=== PATIENT | male | born 1945 | race Caucasian/White ===

== ENCOUNTER 2016-12-09 07:46 | Inpatient (IN) | payer OTHER ==
[2016-11-27 14:32] LABS: ASCORBIC ACID (UR NOT ORDER) NEG (NEG); BILIRUBIN, URINE NEGATIVE (NEG); KETONE, URINE NEGATIVE (NEG); LEUKOCYTE ESTERASE(NOT OR NEG (NEG); WBC (NOT ORDERED) (RFLEX) < 1 (0-5)
[2016-11-27 15:57] LABS: BASOPHILS 0.6 %; BASOPHILS ABSOLUTE 0.03 10/3/uL (0.0-0.16); EOSINOPHILS 2.8 %; EOSINOPHILS ABSOLUTE 0.15 10/3/uL (0.0-0.53); HEMATOCRIT 43.4 % (40.0-51.0); HEMOGLOBIN 14.1 g/dL (13.6-17.8); LYMPHOCYTES 38.3 %; LYMPHOCYTES ABSOLUTE 2.07 10/3/uL (0.67-4.30); MEAN CORPUS HGB CONC 32.5 g/dL (32.0-36.0); MEAN CORPUSCULAR HEMOGLOB 30.5 pg (26.0-34.0); MEAN CORPUSCULAR VOLUME 93.7 fL (80-100); MEAN PLATELET VOLUME 9.9 fL (9.2-13.0); MONOCYTES 9.8 %; MONOCYTES ABSOLUTE 0.53 10/3/uL (0.21-1.20); NEUTROPHILS 48.5 %; NEUTROPHILS ABSOLUTE 2.62 10/3/uL (2.02-8.40); PLATELET COUNT 156 10/3/uL (150-400); RBC DISTRIBUTION WIDTH 15.1 % (12.0-16.0); RED CELL COUNT 4.63 10/6/uL (4.7-6.1); WHITE BLOOD CELLS 5.4 10/3/uL (4.5-10.5)
[2016-11-27 16:10] LABS: INTERNATIONAL NORMAL RATI 1.1 UNITS (-); PROTIME (NOT ORD) 14.2 SEC (12.0-14.5)
[2016-11-27 16:13] LABS: % IRON SAT 28 % (20-50); A/G RATIO 0.9 (0.7-1.9); ALBUMIN 3.5 G/DL (3.5-5.0); ALKALINE PHOSPHATASE 55 U/L (45-117); BUN (BLOOD UREA NITROGEN) 19 MG/DL (6-23); CALCIUM, SERUM 8.4 MG/DL (8.5-10.4); CHLORIDE, SERUM 110 MMOL/L (96-112); CO2 (CARBON DIOXIDE) 26 MMOL/L (24-34); CREATININE 0.91 MG/DL (0.70-1.30); GFR AFRICAN AMERICAN 99 ML/MIN (>=60); GFR NON AFRICAN AMERICAN 85 ML/MIN (>=60); GLOBULIN 3.7 G/DL (2.5-4.1); GLUCOSE, SERUM 89 MG/DL (60-99); IRON BINDING CAPACITY 265 MCG/DL (250-450); IRON, SERUM 73 MCG/DL (35-150); SGOT(AST) 13 U/L (5-40); SGPT(ALT) 20 U/L (5-65); SODIUM, SERUM 142 MMOL/L (135-148); TOTAL BILIRUBIN 0.3 MG/DL (0-1.2); TOTAL PROTEIN 7.2 G/DL (6.0-8.5)
[2016-11-27 16:14] LABS: POTASSIUM, SERUM 4.6 MMOL/L (3.5-5.3)
[2016-11-27 16:16] LABS: MANUAL DIFF NO %
--- NOTE | ~2016-12-09 | DS ---
Discharge Summary [facility] [address] [place]. [address] NAME: SILVER VINSON : 47 STATUS : DIS IN PAT#: [id number] AGE: 71 ADM/REG DATE : 12/09/16 MR#: [id number] REPORT SERV DATE: 12/23/16 DICTATED BY: ABDULAZIZ PETTIT DATE: 12/22/16 REPORT STATUS : Draft TRANSCRIBED BY: SALLY DATE: 12/22/16 Data Collection from hospitalization DISCHARGE DIAGNOSES: 1. Coronary artery disease, status post coronary artery bypass grafting. 2. Hypertension. 3. Hyperlipidemia. 4. Tobacco use. 5. Chronic obstructive pulmonary disease. 6. History of prostate cancer. CONSULTATIONS: Sánchez Dugan MD PROCEDURES PERFORMED: Coronary artery bypass grafting x5 with left internal mammary artery to the left anterior descending artery, reverse saphenous vein graft placed to the first diagonal, reverse saphenous vein graft placed to the first obtuse marginal, reverse saphenous vein graft placed to the second obtuse marginal, reverse saphenous vein graft placed to the posterior descending artery; endoscopic vein harvest of the saphenous vein from the right and left leg; transesophageal echocardiography on 12/09/2016. MEDICATIONS: Cordarone 300 mg twice a day, vitamin C 1000 mg daily, aspirin 81 mg daily, vitamin D3 2000 units at bedtime, Plavix 75 mg daily, vitamin B12 1000 mcg at bedtime, Cozaar 25 mg daily, Lopressor 12.5 mg twice a day, multivitamins one tablet daily, Percocet 5/325 one tablet every four hours as needed, Zantac 150 mg at bedtime, Crestor 20 mg at bedtime, and fiber tablets one tablet daily. CONDITION AT DISCHARGE: Stable. DISPOSITION: The patient was discharged home on a low-cholesterol, low-sodium, 1800-calorie cardiac/diabetic diet with activities as instructed. He would follow up with Hilario Germain on 01/07/[address] Mitul Fish on 01/04/2017. He would follow up with Dr. Zoë Smith, III, two to three weeks following discharge. HOSPITAL COURSE: This is a 71-year-old man who has a long history of tobacco use. He has smoked more than three packs per day for 52 years. He recently had a syncopal episode and had been evaluated by his primary care physician. An ultrasound was obtained. There was no significant carotid artery disease seen. He has been referred to Dr. Fish for a cardiac evaluation and underwent a nuclear stress test that was abnormal. This was followed by cardiac catheterization, which demonstrated severe diffuse three-vessel coronary artery disease. His ventricular function was good with ejection fraction greater than 50%. It was felt that he would need to undergo coronary artery bypass grafting. He was admitted to the hospital at this time for further evaluation and treatment. Upon admission, he was taken to the operating room where he underwent the above-mentioned procedure. He tolerated this well, and there were no complications. On postop day #1, his lungs were clear. He had no edema. He has been seen by Dr. Sánchez Dugan. The patient wanted to have a bowel movement. Cardiovascular medications were going to be started once he was stable. He was encouraged to use pulmonary toilet. On 12/11/2016, his abdomen was Discharge Summary [address] [address] NAME: SILVER VINSON : 47 STATUS : DIS IN PAT#: [id number] AGE: 71 ADM/REG DATE : 12/09/16 MR#: [id number] REPORT SERV DATE: 12/23/16 DICTATED BY: ABDULAZIZ PETTIT DATE: 12/22/16 REPORT STATUS : Draft TRANSCRIBED BY: SALLY DATE: 12/22/16 soft and nontender. His incisions looked okay. He had no edema. O2 was being weaned. We encouraged him to mobilize. He did have some chest pain with inspiration. He was ambulating in his room. He does have some dyspnea on exertion. He seemed to be making good progress. O2 was being weaned. He was encouraged to increase his ambulation. The next day, he had no new complaints. He did have coarse rhonchi in his lungs. White count was 13.2. Discharge planning was performed. Blood pressure was controlled. On 12/13/2016, his lungs were clear. Discharge instructions were given. He had no dyspnea or chest pain. Due to his improved and stable condition, he was discharged home with the above-stated instructions. Information collected by: Radha Madera I submit the above information as my discharge summary. ALLISON/SALLY Abdulaziz Pettit M.D. / [id number] CC: Tucker Holm III, MD Vimal Ramjee, MD
--- NOTE | ~2016-12-09 | OP ---
Record Of Operation [facility] [address] [place]. [address] NAME: SILVER VINSON : 47 STATUS : ADM IN PAT#: [id number] AGE: 71 ADM/REG DATE : 12/09/16 MR#: [id number] REPORT SERV DATE: 12/09/16 DICTATED BY: ABDULAZIZ PETTIT DATE: 12/09/16 REPORT STATUS : Draft TRANSCRIBED BY: MODL DATE: 12/09/16 DATE OF PROCEDURE: 12/09/2016 PREOPERATIVE DIAGNOSES: 1. Coronary artery disease. 2. Recent syncopal episode. 3. Hypertension. 4. Hyperlipidemia. 5. Obesity. 6. Tobacco abuse. 7. COPD secondary to tobacco abuse. POSTOPERATIVE DIAGNOSES: 1. Coronary artery disease. 2. Recent syncopal episode. 3. Hypertension. 4. Hyperlipidemia. 5. Obesity. 6. Tobacco abuse. 7. COPD secondary to tobacco abuse. PROCEDURE PERFORMED: 1. Coronary artery bypass grafting x5, left internal mammary artery placed to left anterior descending, reverse saphenous vein graft placed to the first diagonal, reverse saphenous vein graft placed to the first obtuse marginal, reverse saphenous vein graft placed to the second obtuse marginal, reverse saphenous vein graft placed to the posterior descending artery. 2. Endoscopic vein harvest, saphenous vein from the right and left leg. 3. Transesophageal echocardiography. SURGEON: Abdulaziz Pettit M.D. ANIMAL CARE WORKER: Pipe Whiteside, Estiven Arroyo, and Anam West. ANESTHESIA: General with Dr. Esqueda. CARDIOLOGISTS: Mitul Fish M.D. INDICATIONS: This is a 71-year-old gentleman with long history of smoking, who has smoked more than three packs per day for 52 years. He recently had a syncopal episode and was evaluated by his primary care physician. An ultrasound was obtained. There was no significant carotid artery disease seen. He was referred to Dr. Fish for cardiac evaluation and underwent a nuclear stress test that was abnormal. This was followed by a cardiac catheterization, which demonstrated severe diffuse three-vessel coronary artery disease. His ventricular function was good with an ejection fraction of greater than 50%. We were asked to see the patient for possible coronary artery bypass grafting. Pulmonary Record Of Operation [facility] [address] [place]. [address] NAME: SILVER VINSON : 47 STATUS : ADM IN PAT#: [id number] AGE: 71 ADM/REG DATE : 12/09/16 MR#: [id number] REPORT SERV DATE: 12/09/16 DICTATED BY: ABDULAZIZ PETTIT DATE: 12/09/16 REPORT STATUS : Draft TRANSCRIBED BY: MODL DATE: 12/09/16 function studies were performed, and these demonstrated findings consistent with moderate COPD with a FEV1 1.95, which is 64% of predicted. The patient also had a CT scan of the chest that demonstrated multiple small nodules in the right lower lobe with recommended one- year followup. There was mild ectasia of the ascending aorta and descending thoracic aorta. We discussed possible coronary artery bypass grafting with the patient in an outpatient setting. After discussing the operations, its indication, and risks, they wished to proceed. Preoperative discussion of STS predicted risk of mortality was carried out and mortality was less than 5% and morbidity-mortality of less than 12% were shared with him and his family. FINDINGS AT OPERATION: 1. Cross-clamp 104 minutes, total pump time of 119 minutes. 2. The LAD was 1.75 mm moderately diseased vessel. A 3 mm HAMMER was anastomosed to it with good runoff. 3. The first diagonal was a less than 1.5 mm and heavily diseased. A 4 mm RSVG was anastomosed to it with poor or fair runoff. This was a small and heavily diseased target vessel. 4. The first obtuse marginal was 2 mm and heavily diseased distally. A 3 to 4 mm RSVG was anastomosed to it with good runoff. 5. The second obtuse marginal was 1.5 mm, moderately diseased. A 3 mm RSVG was anastomosed to it with good runoff. 6. The distal right coronary artery at the bifurcation was 1.5 mm and heavily diseased. A 3 mm RSVG was anastomosed to it with good runoff. 7. The vein quality was fair and poor from both legs. Below the level of the knees, both greater saphenous veins had old thrombus and evidence of recanalization of the distal saphenous veins and it had to be removed. On the right side in the thigh, the vein became very large and would not usable as a conduit. On the left side, the vein was better quality and was found to be usable for conduit. All grafts with the exception of the diagonal vessel had good Doppler signal at the end of the case. The diagonal graft had fair signal. 8. ITZ at the end of the operation demonstrated good ventricular function with mild central mitral insufficiency. 9. The both lungs were emphysematous. Again, the patient had abnormality on CT scan and recommended followup was one year. 10.Both the greater saphenous veins had evidence of old thrombus lining the sides of the vessels making them a thicker saphenous vein. PATHOLOGIC SPECIMENS: None. DESCRIPTION OF PROCEDURE: The patient was brought to the operating suite. General anesthesia was induced, the airway was secured with an endotracheal tube. Lines were secured by Anesthesia. You catheter was placed. The patient's chest, abdomen, groin, and legs prepped with Hibiclens and ChloraPrep and draped with Ioban and sterile sheets. ITZ probe was placed by Dr. Esqueda and examination was carried out in my attendance. There was mild central mitral insufficiency. The saphenous vein was harvested from both legs using endoscopic technique. Initially, a 2 Record Of Operation [address] [address] NAME: SILVER VINSON ABDULAZIZ : 47 STATUS : ADM IN PAT#: [id number] AGE: 71 ADM/REG DATE : 12/09/16 MR#: [id number] REPORT SERV DATE: 12/09/16 DICTATED BY: ABDULAZIZ PETTIT DATE: 12/09/16 REPORT STATUS : Draft TRANSCRIBED BY: SALLY DATE: 12/09/16 cm incision placed in the medial aspect of the right knee. Then, using VasoView trocars, the vessel was dissected from the surrounding subcutaneous tissue and fat. The side branches were identified, ligated, and divided with cautery. Once adequate length of vein had been dissected, a counter incision made up in the groin and in the lower leg where the vein was ligated, divided, and brought through the knee incision. Unfortunately, the length of vein from the right leg was poor. Below the level of the knee, the vein was totally occluded with the old thrombosis and no real lumen. Above the knee, the vein became very dilated and aneurysmal and poor quality also. There was one segment of vein in the very proximal right thigh. It was reasonable for bypass grafting. Therefore, we cut down on the left greater saphenous vein through 2 cm incision placed in the medial aspect left knee. Then, using the VasoView trocars, the vessel was dissected from the surrounding subcutaneous tissue and fat. The side branches were identified, ligated, and divided with cautery. Again, when adequate length of vein had been dissected, a counter incision made up in the groin and in the lower leg where again the vein was brought out of the left knee incision. The vein quality was somewhat better from this side with usable lumen for most of the distance; however, evidence of old thrombosis in the vein could be seen distally and this was discarded. Both leg wounds were made hemostatic and closed in layers with absorbable suture and skin closed in subcuticular fashion. Then, a midline sternal incision was made and the sternum opened with a saw. The left hemithorax was elevated, and the endothoracic fascia was incised. Side branch of the NATALIE were clipped and divided. Once the NATALEI was completely dissected, the patient was anticoagulated with heparin. The chest tube was placed in the left pleural cavity. The NATALIE was clipped and divided distally. There was good flow through the NATALIE and its pedicle was infiltrated with papaverine. Next, the Chaz retractor was placed in the pericardium over the innominate vein where diaphragm was T'd and tacked to the side of the chest wall. Cannulation pursestring sutures were placed, and cannulation was carried out in routine manner. A retrograde cardioplegia cannula was placed in the coronary sinus. When all was in readiness, the patient was placed on cardiopulmonary bypass. The distal targets were then marked out on the heart as described in the findings. Then, a heart support was placed. The aorta was crossclamped and an initial dose of cold blood cardioplegia solution was given in a combination of antegrade and retrograde fashion, then in a retrograde manner following proximal anastomoses. Following the first dose of cardioplegia, the heart was positioned for the first obtuse marginal graft. Arteriotomy was made. The vein graft trimmed and anastomosed it with 7-0 Prolene. The vein graft was measured back to the left side of the ascending aorta where it was divided. We then positioned the heart for the distal right coronary artery graft. Arteriotomy was made, and the distal RCA is a bifurcated into the posterior lateral and posterior descending vessels. The vein was brought to the field and anastomosed to this site with a running suture of 7-0 Prolene. This vein graft was then measured to the ascending aorta where it was divided. Next, the proximal ends of the two vein grafts were Record Of Operation [facility] [id number] [facility]. [address] NAME: SILVER VINSON : 47 STATUS : ADM IN PAT#: [id number] AGE: 71 ADM/REG DATE : 12/09/16 MR#: [id number] REPORT SERV DATE: 12/09/16 DICTATED BY: ABDULAZIZ PETTIT DATE: 12/09/16 REPORT STATUS : Draft TRANSCRIBED BY: MODL DATE: 12/09/16 anastomosed to 4.5 mm punch aortotomy with 6-0 Prolene. Another dose of cardioplegia was given, and the heart was positioned for the second obtuse marginal graft. Arteriotomy was made. The vein graft trimmed and anastomosed it with 7-0 Prolene. This vein graft was then measured back to the left side of the ascending aorta where it was divided. We then positioned the heart for the diagonal graft. Arteriotomy was made in this heavily diseased vessel. This vein graft was trimmed and anastomosed it with 7-0 Prolene. This vein graft was then measured back to the left side of the ascending aorta where it was divided. Next, proximal ends of the two vein grafts were anastomosed to 4.5 mm punch aortotomy with 6-0 Prolene. Another dose of cardioplegia was given, and the heart was positioned for the LAD graft. Warming was begun. Arteriotomy was made in the mid LAD. The NATALIE was brought out the left chest through a notch in the pericardium over the pulmonary artery. The NATALIE was opened and anastomosed to the LAD with running suture of 8-0 Prolene. The endothoracic fascia was tacked to epicardium. The patient was placed in Trendelenburg and final dose of warm blood cardioplegia was given in a retrograde fashion. Ventricular and atrial pacing wires were placed. Following the last dose cardioplegia and de-airing of the aorta, the aortic cross clamp was removed. The distal and proximal anastomoses were inspected and made hemostatic. Doppler demonstrated good flow through the grafts. The heart resumed a slow sinus rhythm and was paced atrially at rate of 80. Ventilations were begun. When the heart demonstrated good contractility, it was allowed to fill and eject. When de-airing was completed, the patient was taken out of Trendelenburg. The ascending aortic vent removed and these pursestring sutures were tied and reinforced. The patient was then weaned from cardiopulmonary bypass with minimal inotropic support. The venous cannula was removed, and these pursestring were sutures tied. ITZ examination demonstrated good ventricular function with a mild central mitral insufficiency jet. Protamine was administered by Anesthesia and following a period hemodynamic stability, the aortic cannula was removed, and these pursestring sutures were tied and reinforced. The patient continued do well, and chest was irrigated copiously with saline. Meticulous hemostasis was obtained. Hemasorb was placed along the cut edge of the sternum. Once hemostasis was assured, the pericardium was draped over the anterior surface of heart and tacked in position. Doppler demonstrated good flow through all the grafts except for the diagonal graft which only had fair flow. Chest tube was then placed, and the sternum was reapproximated with eight sternal wires. The clavipectoral fascia were closed with #1 Stratafix, and the subcutaneous tissue closed with 2-0 Stratafix. The skin was closed in subcuticular fashion. The patient tolerated the procedure well. There were no complications. Sponge and needle counts were correct. DISPOSITION: The patient left intubated, sedated, and transported to the intensive care unit in stable condition. Record Of Operation [address] [place]. [address] NAME: SILVER VINSON : 47 STATUS : ADM IN [facility]#: [id number] AGE: 71 ADM/REG DATE : 12/09/16 MR#: [id number] REPORT SERV DATE: 12/09/16 DICTATED BY: ABDULAZIZ PETTIT DATE: 12/09/16 REPORT STATUS : Draft TRANSCRIBED BY: SALLY DATE: 12/09/16 GILES/SALLY Abdulaziz Pettit M.D. / [id number] CC: Tucker Holm M.D.
[~2016-12-09 07:46] MED LIST: CRESTOR20 MG PO; CYANO1000T PO; FIBER TAB PO; FISH-EPA1000 MG PO; LOP25 PO; MULTIPLE VIT PO; NORV25 PO; VITAMIN D31000 UNIT PO; ZANTAC150 MG PO
[2016-12-09 17:23] LABS: BE (BASE EXCESS) -6.5 MEQ/L (0 +/- 2.5); HCO3 (ACTUAL BICARBONATE) 19.4 MEQ/L (23-27); INSTRUMENT SERIAL # 11843; PCO2 (CO2 TENSION) 40 MMHG (35-45); PO2 (O2 TENSION) 517 MMHG (79-93)
[2016-12-09 17:24] LABS: CARBOXYHEMOGLOBIN 0.2 % (0-3); HEMOBLOGIN CONTENT 14.1 G/DL (14-18); METHEMOGLOBIN 0.6 % (0-3); MODE SIMV; O2 CONTENT 20.9 VOL% (18-24); OPERATOR ID 13624; SAMPLE Arterial; TIDAL VOLUME 700 ML
[2016-12-09 17:38] LABS: HEMATOCRIT 40.6 % (40.0-51.0); HEMOGLOBIN 13.6 g/dL (13.6-17.8); MEAN CORPUS HGB CONC 33.5 g/dL (32.0-36.0); MEAN CORPUSCULAR HEMOGLOB 30.8 pg (26.0-34.0); MEAN CORPUSCULAR VOLUME 91.9 fL (80-100); MEAN PLATELET VOLUME 9.7 fL (9.2-13.0); PLATELET COUNT 116 10/3/uL (150-400); RBC DISTRIBUTION WIDTH 14.5 % (12.0-16.0); RED CELL COUNT 4.42 10/6/uL (4.7-6.1)
[2016-12-09 17:43] LABS: MANUAL DIFF YES %
[2016-12-09 17:46] LABS: INTERNATIONAL NORMAL RATI 1.4 UNITS (-); PARTIAL THROMBO TIME 30.5 SEC (22.5-37.2)
[2016-12-09 17:47] LABS: PROTIME (NOT ORD) 16.7 SEC (12.0-14.5)
[2016-12-09 18:00] LABS: BAND NEUTROPHILS 17 %; EOSINOPHILS 1 %; EOSINOPHILS ABSOLUTE (CALC) 0.14 10/3/uL (0.0-0.53); LYMPHOCYTES 7 %; LYMPHOCYTES ABSOLUTE (CALC) 0.98 10/3/uL (0.67-4.30); MONOCYTES 1 %; MONOCYTES ABSOLUTE (CALC) 0.14 10/3/uL (0.21-1.20); NEUTROPHILS ABSOLUTE (CALC) 12.74 10/3/uL (2.02-8.40); PLATELET ESTIMATE SLT DEC (ADEQUATE); RBC MORPHOLOGY NORM (NORMAL); SEGMENTED NEUTROPHIL (0) 74 %; TOTAL NUCLEATED CELLS 100
[2016-12-09 18:07] LABS: ALBUMIN 2.8 G/DL (3.5-5.0); BUN (BLOOD UREA NITROGEN) 20 MG/DL (6-23); CALCIUM, SERUM 8.6 MG/DL (8.5-10.4); CHLORIDE, SERUM 113 MMOL/L (96-112); CO2 (CARBON DIOXIDE) 23 MMOL/L (24-34); CREATININE 1.14 MG/DL (0.70-1.30); GFR AFRICAN AMERICAN 75 ML/MIN (>=60); GFR NON AFRICAN AMERICAN 65 ML/MIN (>=60); GLUCOSE, SERUM 101 MG/DL (60-99); POTASSIUM, SERUM 3.9 MMOL/L (3.5-5.3); SODIUM, SERUM 144 MMOL/L (135-148)
[2016-12-09 22:29] LABS: BE (BASE EXCESS) -5.9 MEQ/L (0 +/- 2.5); CARBOXYHEMOGLOBIN 0.3 % (0-3); DEVICE NC; HCO3 (ACTUAL BICARBONATE) 19.4 MEQ/L (23-27); HEMOBLOGIN CONTENT 13.7 G/DL (14-18); INSTRUMENT SERIAL # 11843; METHEMOGLOBIN 0.4 % (0-3); O2 CONTENT 18.2 VOL% (18-24); OPERATOR ID 13744; PCO2 (CO2 TENSION) 38 MMHG (35-45); PO2 (O2 TENSION) 82 MMHG (79-93); SAMPLE Arterial; pH 7.33 (7.37-7.43)
[2016-12-09 22:49] LABS: HEMATOCRIT 39.6 % (40.0-51.0); HEMOGLOBIN 13.3 g/dL (13.6-17.8); MANUAL DIFF YES %; MEAN CORPUS HGB CONC 33.6 g/dL (32.0-36.0); MEAN CORPUSCULAR HEMOGLOB 30.8 pg (26.0-34.0); MEAN CORPUSCULAR VOLUME 91.7 fL (80-100); MEAN PLATELET VOLUME 10.3 fL (9.2-13.0); PLATELET COUNT 134 10/3/uL (150-400); RBC DISTRIBUTION WIDTH 14.5 % (12.0-16.0); RED CELL COUNT 4.32 10/6/uL (4.7-6.1); WHITE BLOOD CELLS 12.8 10/3/uL (4.5-10.5)
[2016-12-09 23:00] LABS: BUN (BLOOD UREA NITROGEN) 23 MG/DL (6-23); CALCIUM, SERUM 8.2 MG/DL (8.5-10.4); CHLORIDE, SERUM 114 MMOL/L (96-112); CO2 (CARBON DIOXIDE) 21 MMOL/L (24-34); CREATININE 1.19 MG/DL (0.70-1.30); GFR AFRICAN AMERICAN 71 ML/MIN (>=60); GFR NON AFRICAN AMERICAN 62 ML/MIN (>=60); POTASSIUM, SERUM 4.6 MMOL/L (3.5-5.3); SODIUM, SERUM 144 MMOL/L (135-148)
[2016-12-09 23:01] LABS: GLUCOSE, SERUM 148 MG/DL (60-99)
[2016-12-10] LABS: BAND NEUTROPHILS 16 %; LYMPHOCYTES 5 %; LYMPHOCYTES ABSOLUTE (CALC) 0.64 10/3/uL (0.67-4.30); MONOCYTES 1 %; MONOCYTES ABSOLUTE (CALC) 0.13 10/3/uL (0.21-1.20); NEUTROPHILS ABSOLUTE (CALC) 12.03 10/3/uL (2.02-8.40); PLATELET ESTIMATE SLT DEC (ADEQUATE); RBC MORPHOLOGY NORM (NORMAL); SEGMENTED NEUTROPHIL (0) 78 %; TOTAL NUCLEATED CELLS 100
[2016-12-10 03:39] LABS: BASOPHILS 0 %; EOSINOPHILS 0 %; HEMATOCRIT 36.6 % (40.0-51.0); HEMOGLOBIN 12.3 g/dL (13.6-17.8); IMMATURE GRANULOCYTES 0.3 %; IMMATURE GRANULOCYTES ABSOLUTE 0.03 10/3/uL (0.0-0.11); LYMPHOCYTES 7.4 %; LYMPHOCYTES ABSOLUTE 0.83 10/3/uL (0.67-4.30); MEAN CORPUS HGB CONC 33.6 g/dL (32.0-36.0); MEAN CORPUSCULAR HEMOGLOB 30.6 pg (26.0-34.0); MEAN PLATELET VOLUME 10.4 fL (9.2-13.0); MONOCYTES 5.7 %; MONOCYTES ABSOLUTE 0.63 10/3/uL (0.21-1.20); NEUTROPHILS 86.6 %; NEUTROPHILS ABSOLUTE 9.66 10/3/uL (2.02-8.40); PLATELET COUNT 122 10/3/uL (150-400); RBC DISTRIBUTION WIDTH 14.7 % (12.0-16.0); RED CELL COUNT 4.02 10/6/uL (4.7-6.1); WHITE BLOOD CELLS 11.2 10/3/uL (4.5-10.5)
[2016-12-10 03:40] LABS: MANUAL DIFF NO %
[2016-12-10 03:42] LABS: INTERNATIONAL NORMAL RATI 1.2 UNITS (-); PARTIAL THROMBO TIME 33.1 SEC (22.5-37.2); PROTIME (NOT ORD) 15.3 SEC (12.0-14.5)
[2016-12-10 03:51] LABS: BUN (BLOOD UREA NITROGEN) 24 MG/DL (6-23); CALCIUM, SERUM 8.1 MG/DL (8.5-10.4); CHLORIDE, SERUM 114 MMOL/L (96-112); CO2 (CARBON DIOXIDE) 23 MMOL/L (24-34); CREATININE 1.26 MG/DL (0.70-1.30); GFR AFRICAN AMERICAN 67 ML/MIN (>=60); GFR NON AFRICAN AMERICAN 57 ML/MIN (>=60); SODIUM, SERUM 146 MMOL/L (135-148)
[2016-12-10 03:52] LABS: GLUCOSE, SERUM 92 MG/DL (60-99)
[2016-12-10 17:49] LABS: HEMATOCRIT 36.6 % (40.0-51.0); HEMOGLOBIN 12.1 g/dL (13.6-17.8)
[2016-12-10 18:03] LABS: POTASSIUM, SERUM 4.8 MMOL/L (3.5-5.3)
[2016-12-11 05:37] LABS: BASOPHILS 0 %; EOSINOPHILS 0 %; HEMATOCRIT 34.3 % (40.0-51.0); HEMOGLOBIN 11.5 g/dL (13.6-17.8); IMMATURE GRANULOCYTES 0.3 %; IMMATURE GRANULOCYTES ABSOLUTE 0.05 10/3/uL (0.0-0.11); LYMPHOCYTES 8.7 %; LYMPHOCYTES ABSOLUTE 1.29 10/3/uL (0.67-4.30); MEAN CORPUS HGB CONC 33.5 g/dL (32.0-36.0); MEAN CORPUSCULAR HEMOGLOB 30.3 pg (26.0-34.0); MEAN CORPUSCULAR VOLUME 90.5 fL (80-100); MEAN PLATELET VOLUME 10.4 fL (9.2-13.0); MONOCYTES 8.5 %; MONOCYTES ABSOLUTE 1.27 10/3/uL (0.21-1.20); NEUTROPHILS 82.5 %; PLATELET COUNT 122 10/3/uL (150-400); RBC DISTRIBUTION WIDTH 15.4 % (12.0-16.0); RED CELL COUNT 3.79 10/6/uL (4.7-6.1); WHITE BLOOD CELLS 14.9 10/3/uL (4.5-10.5)
[2016-12-11 05:43] LABS: MANUAL DIFF NO %
[2016-12-11 05:54] LABS: BUN (BLOOD UREA NITROGEN) 23 MG/DL (6-23); CALCIUM, SERUM 8.3 MG/DL (8.5-10.4); CO2 (CARBON DIOXIDE) 24 MMOL/L (24-34); CREATININE 0.99 MG/DL (0.70-1.30); GFR AFRICAN AMERICAN 89 ML/MIN (>=60); GFR NON AFRICAN AMERICAN 77 ML/MIN (>=60); POTASSIUM, SERUM 4.7 MMOL/L (3.5-5.3)
[2016-12-11 05:58] LABS: CHLORIDE, SERUM 103 MMOL/L (96-112); GLUCOSE, SERUM 139 MG/DL (60-99); SODIUM, SERUM 136 MMOL/L (135-148)
[2016-12-12 05:16] LABS: BASOPHILS 0.1 %; BASOPHILS ABSOLUTE 0.01 10/3/uL (0.0-0.16); EOSINOPHILS 0.1 %; EOSINOPHILS ABSOLUTE 0.01 10/3/uL (0.0-0.53); HEMATOCRIT 35.2 % (40.0-51.0); HEMOGLOBIN 11.9 g/dL (13.6-17.8); IMMATURE GRANULOCYTES 0.3 %; IMMATURE GRANULOCYTES ABSOLUTE 0.04 10/3/uL (0.0-0.11); LYMPHOCYTES 12.6 %; LYMPHOCYTES ABSOLUTE 1.67 10/3/uL (0.67-4.30); MEAN CORPUS HGB CONC 33.8 g/dL (32.0-36.0); MEAN CORPUSCULAR HEMOGLOB 30.4 pg (26.0-34.0); MEAN CORPUSCULAR VOLUME 89.8 fL (80-100); MEAN PLATELET VOLUME 10.5 fL (9.2-13.0); MONOCYTES ABSOLUTE 1.32 10/3/uL (0.21-1.20); NEUTROPHILS 76.9 %; NEUTROPHILS ABSOLUTE 10.18 10/3/uL (2.02-8.40); PLATELET COUNT 123 10/3/uL (150-400); RBC DISTRIBUTION WIDTH 15.1 % (12.0-16.0); RED CELL COUNT 3.92 10/6/uL (4.7-6.1); WHITE BLOOD CELLS 13.2 10/3/uL (4.5-10.5)
[2016-12-12 05:22] LABS: MANUAL DIFF NO %
[2016-12-12 05:32] LABS: BUN (BLOOD UREA NITROGEN) 22 MG/DL (6-23); CALCIUM, SERUM 8.4 MG/DL (8.5-10.4); CHLORIDE, SERUM 102 MMOL/L (96-112); CO2 (CARBON DIOXIDE) 26 MMOL/L (24-34); CREATININE 1.08 MG/DL (0.70-1.30); GFR AFRICAN AMERICAN 80 ML/MIN (>=60); GFR NON AFRICAN AMERICAN 69 ML/MIN (>=60); SODIUM, SERUM 138 MMOL/L (135-148)
[2016-12-12 05:36] LABS: GLUCOSE, SERUM 106 MG/DL (60-99)
[2016-12-13] MEDS ORDERED: VITC500 PO (12:33)
[2016-12-13] MEDS ORDERED: ASAB PO (12:34)
[2016-12-13] MEDS ORDERED: CORDARONE PO (12:35)
[2016-12-13] MEDS ORDERED: PLAVIX PO (12:36)
[2016-12-13] MEDS ORDERED: COZ25 PO (12:37)
[2016-12-13] MEDS ORDERED: PCET PO (12:41)
== END 2016-12-13 13:22 | disposition home or self-care (01) | DRG 236 ==
LOC: SDC/OF 07:46 → CVICU 16:57 → 5NO 12-10 14:10
PROVIDERS: Thoracic Surgery (Cardiothoracic Vascular Surgery)
PROC: 06BQ4ZZ Excision of Left Saphenous Vein, Percutaneous Endoscopic Approach (ICD-10-PCS; 2016-12-09)
PROC: 5A1221Z Performance of Cardiac Output, Continuous (ICD-10-PCS; 2016-12-09)
PROC: B246ZZ4 Ultrasonography of Right and Left Heart, Transesophageal (ICD-10-PCS; 2016-12-09)
PROC: 021309W Bypass Coronary Artery, Four or More Arteries from Aorta with Autologous Venous Tissue, Open Approach (ICD-10-PCS; principal; 2016-12-09 12:00)
PROC: 02100Z9 Bypass Coronary Artery, One Artery from Left Internal Mammary, Open Approach (ICD-10-PCS; 2016-12-09 12:00)
DX: I25.10 Atherosclerotic heart disease of native coronary artery without angina pectoris (principal); J44.9 Chronic obstructive pulmonary disease, unspecified; I10 Essential (primary) hypertension; E78.5 Hyperlipidemia, unspecified; E66.9 Obesity, unspecified; F17.210 Nicotine dependence, cigarettes, uncomplicated; Z68.34 Body mass index [BMI] 34.0-34.9, adult; Z85.46 Personal history of malignant neoplasm of prostate
CPT/HCPCS: 31720; 36415; 71010; 71020; 80048; 80053; 80069; 81001; 82330; 82803; 82805; 82947; 82962; 83036; 83540; 83550; 83735; 84132; 84295; 85014; 85018; 85025; 85347; 85610; 85730; 86850; 86900; 86901; 86920; 87641; 93005; 93312; 93320; 93325; 94002; 94640; 94660; 94667; 94770; A9270-GY; C1713; C1751; C1769; C1894; J0690; J1644; J2150; J2250; J2370; J2440; J2720; J2795; J2930; J3010; J3475; J3480; P9045; P9047